=== PATIENT | male | born 1980 | race Caucasian/White ===

== ENCOUNTER → 2020-02-23 16:36 | Outpatient (BNVA) | payer OTHER, SELFPAY | PROVIDERS: Family Provider Nurse Practitioner; PCP Nurse Practitioner; Visit Provider Nurse Practitioner | DX: E78.2 Mixed hyperlipidemia (principal); E66.9 Obesity, unspecified; H10.10 Acute atopic conjunctivitis, unspecified eye | CPT/HCPCS: 80053; 80061 ==

== ENCOUNTER → 2020-06-11 16:29 | Outpatient (BNVA) | payer OTHER, SELFPAY | PROVIDERS: Family Provider Nurse Practitioner; PCP Nurse Practitioner; Visit Provider Nurse Practitioner | DX: E78.2 Mixed hyperlipidemia (principal) | CPT/HCPCS: 80053; 80061 ==

== ENCOUNTER → 2020-08-13 16:00 | Outpatient (BNVA) | payer OTHER, SELFPAY | PROVIDERS: Family Provider Nurse Practitioner; PCP Nurse Practitioner; Visit Provider Family Medicine | DX: N52.9 Male erectile dysfunction, unspecified (principal) | CPT/HCPCS: 84153; 84403 ==

== ENCOUNTER → 2020-12-11 16:27 | Outpatient (BNVA) | payer OTHER, SELFPAY | PROVIDERS: Family Provider Nurse Practitioner; PCP Nurse Practitioner; Visit Provider Family Medicine | DX: E29.1 Testicular hypofunction (principal) | CPT/HCPCS: 84403 ==

== ENCOUNTER → 2021-02-27 14:33 | Outpatient (BNVA) | payer OTHER, SELFPAY | PROVIDERS: Family Provider Nurse Practitioner; PCP Nurse Practitioner; Visit Provider Family Medicine | DX: E78.2 Mixed hyperlipidemia (principal); I10 Essential (primary) hypertension; N52.9 Male erectile dysfunction, unspecified | CPT/HCPCS: 80053; 80061; 84403; 84443; 85025 ==

== ENCOUNTER → 2021-12-06 09:41 | Outpatient (BNVA) | payer OTHER, SELFPAY | PROVIDERS: Family Provider Nurse Practitioner; PCP Nurse Practitioner; Visit Provider Nurse Practitioner | DX: I10 Essential (primary) hypertension (principal); R79.89 Other specified abnormal findings of blood chemistry | CPT/HCPCS: 80053; 80061; 81000; 84403; 85025 ==

== ENCOUNTER → 2021-12-12 14:25 | Outpatient (BNVA) | payer OTHER, SELFPAY | PROVIDERS: Family Provider Nurse Practitioner; PCP Nurse Practitioner; Visit Provider Nurse Practitioner | DX: M79.672 Pain in left foot (principal); M77.32 Calcaneal spur, left foot | CPT/HCPCS: 73630 ==

== ENCOUNTER → 2022-01-03 08:21 | Outpatient (BNVA) | payer OTHER, SELFPAY | PROVIDERS: Family Provider Nurse Practitioner; PCP Nurse Practitioner; Visit Provider Nurse Practitioner | DX: R79.89 Other specified abnormal findings of blood chemistry (principal) | CPT/HCPCS: 84403 ==

== ENCOUNTER → 2022-09-03 10:15 | Outpatient (BNVA) | payer OTHER, SELFPAY | PROVIDERS: Family Provider Nurse Practitioner; PCP Nurse Practitioner; Visit Provider Nurse Practitioner | DX: R79.89 Other specified abnormal findings of blood chemistry (principal); E78.2 Mixed hyperlipidemia | CPT/HCPCS: 80053; 80061; 84403; 85025 ==

== ENCOUNTER → 2022-12-25 16:08 | Outpatient (BNVA) | payer OTHER, SELFPAY | PROVIDERS: Family Provider Nurse Practitioner; PCP Nurse Practitioner; Visit Provider Nurse Practitioner | DX: R79.89 Other specified abnormal findings of blood chemistry (principal); E78.2 Mixed hyperlipidemia; I10 Essential (primary) hypertension | CPT/HCPCS: 80053; 80061; 84403; 85025 ==

== ENCOUNTER 2024-03-12 12:07 | Outpatient (CLI) | payer OTHER, SELFPAY ==
[2024-03-12 12:56] LABS: Basophils # 0.1 10^3/uL (0.0-0.1); Eosinophils # 0.4 10^3/uL (0.0-0.8); Eosinophils % 4.9 %; Hematocrit 51.5 % (37-53); Lymphocytes # 2.3 10^3/uL (0.8-4.8); Mean Corpuscular HGB Conc 33.8 g/dL (30-55); Mean Corpuscular Hemoglobin 31.4 pg (27-33); Mean Corpuscular Volume 92.8 fl (82-101); Monocytes # 0.7 10^3/uL (0.2-0.9); Neutrophils # 4.72 10^3/uL (1.8-7.7); Nucleated Red Blood Cells % 0 %; Platelet Count 211 10^3/cmm (157-399); Red Blood Count 5.55 10^6/uL (3.85-5.65); Red Cell Distribution Width 12.6 % (12.1-15.1); White Blood Count 8.14 10^3/uL (3.29-11.43)
[2024-03-12 13:12] LABS: Alanine Aminotransferase 34 U/L (0-41); Albumin Level 4.1 g/dL (3.5-5.2); Alkaline Phosphatase 75 U/L (40-130); Aspartate Amino Transferase 18 U/L (0-40); Blood Urea Nitrogen 11 mg/dL (6-20); Calcium 9.4 mg/dL (8.5-10.5); Carbon Dioxide 23 mmol/L (22-29); Chloride 109 mmol/L (98-107); Chol HDL Ratio 4.85 mg/dL (1.0-5.00); Cholesterol 194 mg/dL (0-200); Globulin 2.8 g/dL (1.3-4.6); Glomerular Filtration Rate 91.7 mL/min (90-130); Glucose 95 mg/dL (65-115); HDL Cholesterol 40 mg/dL (60-100); LDL Cholesterol Calculated 98 mg/dL (50-129); Osmolality Calculated 299 mOsm/kg (285-295); Sodium 145 mmol/L (136-145); Total Bilirubin 0.3 mg/dL (0.15-1.2); Total Protein 6.9 g/dL (6.6-8.7); Triglycerides 279 mg/dL (0-150); VLDL Cholestrol Calculation 56 mg/dL (0-30)
[2024-03-12 13:16] LABS: Anion Gap 17.7 (5-19); Potassium 4.7 mmol/L (3.5-5.1)
[2024-03-12 13:18] LABS: Testosterone Total 244.2 ng/dL (249-836)
== END 2024-03-12 12:08 | disposition home or self-care (01) ==
LOC: LAB 12:10
PROVIDERS: Family Provider Nurse Practitioner; PCP Nurse Practitioner; Visit Provider Nurse Practitioner
DX: R79.89 Other specified abnormal findings of blood chemistry (principal); E78.2 Mixed hyperlipidemia
CPT/HCPCS: 36415; 80053; 80061; 84403; 85025

== ENCOUNTER → 2024-05-06 14:41 | Outpatient (BNVA) | payer OTHER, SELFPAY | PROVIDERS: Family Provider Nurse Practitioner; PCP Nurse Practitioner; Visit Provider Nurse Practitioner | DX: R39.9 Unspecified symptoms and signs involving the genitourinary system (principal) | CPT/HCPCS: 81000 ==

== ENCOUNTER → 2024-05-09 09:27 | Outpatient (BNVA) | payer OTHER, SELFPAY | PROVIDERS: Family Provider Nurse Practitioner; PCP Nurse Practitioner; Visit Provider Nurse Practitioner | DX: I10 Essential (primary) hypertension (principal); R79.89 Other specified abnormal findings of blood chemistry | CPT/HCPCS: 81003; 84403; 87086 ==

== ENCOUNTER → 2024-08-29 10:53 | Outpatient (BNVA) | payer OTHER, SELFPAY | PROVIDERS: Family Provider Nurse Practitioner; PCP Nurse Practitioner; Visit Provider Nurse Practitioner | DX: I10 Essential (primary) hypertension (principal); R10.9 Unspecified abdominal pain; N39.0 Urinary tract infection, site not specified; R79.89 Other specified abnormal findings of blood chemistry | CPT/HCPCS: 71046; 80053; 81000; 84403; 85025; 87086 ==

== ENCOUNTER → 2025-01-09 08:16 | Outpatient (BNVA) | payer SELFPAY | PROVIDERS: Family Provider Nurse Practitioner; PCP Nurse Practitioner; Visit Provider Nurse Practitioner | DX: I10 Essential (primary) hypertension (principal); R79.89 Other specified abnormal findings of blood chemistry | CPT/HCPCS: 80053; 80061; 84403; 84443 ==

== ENCOUNTER 2025-02-06 12:27 | Emergency (ER) | payer SELFPAY ==
[2025-02-06 12:38] VITALS: BP 158/92; PULSE 79; TEMP 36.4; O2SAT 98
[2025-02-06 13:31] LABS: Hematocrit 50.0 % (37-53); Hemoglobin 17.30 g/dL (11.27-16.99); Mean Corpuscular HGB Conc 34.6 g/dL (30-55); Mean Corpuscular Hemoglobin 31.4 pg (27-33); Mean Corpuscular Volume 90.7 fl (82-101); Nucleated Red Blood Cells % 0 %; Platelet Count 181 10^3/cmm (157-399); Red Blood Count 5.51 10^6/uL (3.85-5.65); White Blood Count 11.50 10^3/uL (3.29-11.43)
[2025-02-06 13:48] LABS: Alanine Aminotransferase 25 U/L (0-41); Albumin Level 4.1 g/dL (3.5-5.2); Alkaline Phosphatase 74 U/L (40-130); Anion Gap 14.5 (5-19); Aspartate Amino Transferase 17 U/L (0-40); Blood Urea Nitrogen 12 mg/dL (6-20); Calcium 9.0 mg/dL (8.5-10.5); Carbon Dioxide 24 mmol/L (22-29); Chloride 102 mmol/L (98-107); Creatinine Clr Calc Pharmacy 102.5933; Globulin 2.8 g/dL (1.3-4.6); Glucose 100 mg/dL (65-115); Osmolality Calculated 282 mOsm/kg (285-295); Potassium 4.5 mmol/L (3.5-5.1); Sodium 136 mmol/L (136-145); Total Protein 6.9 g/dL (6.6-8.7)
--- NOTE | 2025-02-06 16:08 | CTR_ITS ---
PROCEDURE INFORMATION: Exam: CT Abdomen And Pelvis Without Contrast Exam date and time: 02/06/2025 4:30 PM Age: 44 years old Clinical indication: Abdominal pain; Flank; Right; Additional info: Right flank pain TECHNIQUE: Imaging protocol: Computed tomography of the abdomen and pelvis without contrast. Radiation optimization: All CT scans at this facility use at least one of these dose optimization techniques: automated exposure control; mA and/or kV adjustment per patient size (includes targeted exams where dose is matched to clinical indication); or iterative reconstruction. COMPARISON: CR XR chest 2V* [id number] 08/29/2024 10:52 AM RADIATION DOSE METRICS: Total DLP (mGy-cm): 1070.83 FINDINGS: Lungs: Visualized lung bases appear clear without infiltrate or effusion. Diaphragm: Tiny hiatal hernia. Liver: Normal. No mass. Gallbladder and biliary ducts: Normal. No calcified stones. No ductal dilation. Pancreas: Normal. No ductal dilation. Spleen: Normal. No splenomegaly. Adrenal glands: Normal. No mass. Kidneys and ureters: A 5 mm mid right ureteral calculus is seen at the S1 level with secondary [id number] ureterectasis and moderate hydronephrosis of the right kidney indicating obstructive uropathy. Associated mild right perinephric and periureteral stranding is also seen. No perinephric fluid collection. Left kidney appears unremarkable. Stomach and bowel: No bowel obstruction. Incomplete colonic distension. Scattered colonic diverticulosis without diverticulitis. Appendix: The appendix is visualized. No evidence of appendicitis. Intraperitoneal space: No free fluid or ascites or fluid collection. No free air. Vasculature: Vascular structures appear unremarkable for noncontrast exam. No aneurysmal dilatation of the abdominal aorta. Lymph nodes: No significant lymph node enlargement to indicate lymphadenopathy. Urinary bladder: Suboptimal urinary bladder distension with generalized wall thickening. Reproductive: Several prostate calcification noted. Bones/joints: Bone windows show no acute osseous abnormality. Soft tissues: Unremarkable. CT/CT kidney stone [id number] IMPRESSION: 5 mm mid right ureteral calculus at the S1 level with secondary moderate obstructive uropathy on the right as noted above.
--- NOTE | 2025-02-06 16:09 | ED_ITS ---
HPI - Male Genitourinary 2 General: Chief complaint: Urogenital-Male Stated complaint: R side back and abd pain, trouble urinating, n/v Time Seen by Provider: 02/06/25 15:58 Source: patient Mode of arrival: ambulatory Limitations: no limitations History of Present Illness: 44-year-old male who states he had a his tory of kidney stone in the past states that today he started having right-sided flank pain that radiated to his groin it has been sharp and severe in nature rates pain a 7 send has had some nausea with it. He denies any fevers denies any dysuria denies any worse improved factors Associated symptoms: Reports nausea; Deny dysuria or vomiting Related Data Previous Rx's ?Medication ?Instructions ?Recorded syringe with needle 3 mL 22 gauge #2 ea 08/29/24 x 1 testosterone cypionate 200 mg/mL 200 mg IM .every 14 d ays #2 mL 01/09/25 intramuscular oil (Depo-Testosterone) valsartan 160 mg tablet (Diovan) 160 mg PO DAILY #90 t abs 01/09/25 hydrocodone 5 mg-acetaminophen 325 1 tab PO Q6H PRN pa in #14 tabs 02/06/25 mg tablet naproxen 500 mg tablet (Naprosyn) 500 mg PO BID PRN pa in #20 tabs 02/06/25 ondansetron 4 mg disintegrating 4 mg PO Q6H PRN nausea and 02/06/25 tablet vomiting #14 tabs Allergies Allergy/AdvReac Type Severity Reaction Status Date / Time No Known Allergies Allergy Verified 02/06/25 12:43 Review of Systems 2 Const: Denies: fever(s), chills, body aches or change in appetite ENMT: Denies: throat pain or dental pain Card: Denies: chest pain Resp: Denies: dyspnea GI: Reports: abdominal pain and nausea; Denies: vomiting or diarrhea : Reports: flank pain; Denies: dysuria Musc: Denies: neck pain or back pain Skin/Breast: Denies: rash Neuro: Denies: headache(s) PFSH ED 2 PFSH: Medical History Low testosterone in male Essential hypertension Mixed hyperlipidemia Obesity, Class II, BMI 35-39.9 Surgical History History of knee surgery right History of hand surgery left Family History Other Asthma Diabetes Social History Smoking and tobacco/nicotine status: former use of tobacco/nicotine Second hand smoke exposure: No Alcohol intake: never Substance/Drug Use: never Adopted: No Caregiver/support person: No Lives independently: Yes Household members: spouse Housing: House Marital status: service: No Current occupational status: employed Current occupation: [employer] Do you think of yourself as: Straight/Heterosexual Current gender identity: Male Physical Exam 2 Const: COMMON NORMALS: no acute distress, patient oriented x3 and healthy appearing HENMT: COMMON NORMALS: normocephalic and atraumatic HEAD & SCALP: n ormocephalic and atraumatic Eye: COMMON NORMALS: conjunctivae normal CONJUNCTIVA: Yes conjunctivae normal Neck/C-Spine: COMMON NORMALS: full ROM and supple Chest: COMMONS NORMALS: normal inspection of the chest Resp: COMMON NORMALS: normal respiratory effort, No retractions, No use of accessory muscles and clear to auscultation bilaterally AUSCULTATION: clear to auscultation bilaterally Cardio: COMMON NORMALS: regular rate, regular rhythm and No murmurs present (Cardio) RATE: regular rate RHYTHM: regular rhythm GI: COMMON NORMALS: Normal to inspection, nondistended, normoactive bowel sounds present, Soft to palpation, non-tender and no masses PALPATION: Yes Soft to palpation Extremity: COMMON NORMALS: normal to inspection and full ROM Neuro: COMMON NORMALS: patient oriented x3, moves all extremities and no focal motor deficits Psych: COMMON NORMALS: mental status grossly normal, Normal thought process present and cooperative THOUGHT PROCESS: Normal thought process present Skin: COMMON NORMALS: no rashes or lesions noted and no wounds GENERAL SKIN EXAM: no rashes or lesions noted Course 2 Vital Signs: Vital signs: Vital Signs Temperature 97.5 F L 02/06/25 12:38 Pulse Rate 79 02/06/25 12:38 Respiratory Rate 16 02/06/25 16:22 Blood Pressure 132/83 02/06/25 17:34 Pulse Oximetry 95 02/06/25 17:34 Oxygen Delivery Me thod Room Air 02/06/25 12:38 MDM - Male Medical Decision Making Patient presents here with flank pain CT does show a kidney stone he is well- appearing here pain is resolved no UTI he stable for discharge follow-up PCP return if worsening. Medical Records I reviewed the patient's medical records. Lab Data I reviewed the patient's lab results. 02/06/25 13:24 02/06/25 13:24 Radiology Impressions Abdomen/Pelvis CT 02/06/25 16:08 IMPRESSION: 5 mm mid right ureteral calculus at the S1 level with secondary moderate obstructive uropathy on the right as noted above. Laboratory Results WBC 11.50 10^3/uL (3.29-11.43) H 02/06/25 13:24 RBC 5.51 10^6/uL (3.85-5.65) 02/06/25 13:24 Hgb 17.30 g/dL (11.27-16.99) H 02/06/25 13:24 Hct 50.0 % (37-53) 02/06/25 13:24 MCV 90.7 fl (82-101) 02/06/25 13:24 MCH 31.4 pg (27-33) 02/06/25 13:24 MCHC 34.6 g/dL (30-55) 02/06/25 13:24 RDW 12.1 % (12.1-15.1) 02/06/25 13:24 Plt Count 181 10^3/cmm (157-399) 02/06/25 13:24 MPV 10.0 fL (7.4-10.4) 02/06/25 13:24 Neut % (Auto) 82.2 % 02/06/25 13:24 Lymph % (Auto) 10.2 % 02/06/25 13:24 [place] % (Auto) 5.6 % 02/06/25 13:24 Eos % (Auto) 1.4 % 02/06/25 13:24 Baso % (Auto) 0.3 % 02/06/25 13:24 Neut # (Auto) 9.47 10^3/uL (1.8-7.7) H 02/06/25 13:24 Lymph # (Auto) 1.2 10^3/uL (0.8-4.8) 02/06/25 13:24 [place] # (Auto) 0.6 10^3/uL (0.2-0.9) 02/06/25 13:24 Eos # (Auto) 0.2 10^3/uL (0.0-0.8) 02/06/25 13:24 Baso # (Auto) 0.0 10^3/uL (0.0-0.1) 02/06/25 13:24 Nucleated RBC % (auto) 0 % 02/06/25 13:24 Nucleated RBCs # 0.0 /100WBC 02/06/25 13:24 Sodium 136 mmol/L (136-145) 02/06/25 13:24 Potassium 4.5 mmol/L (3.5-5.1) 02/06/25 13:24 Chloride 102 mmol/L (98-107) 02/06/25 13:24 Carbon Dioxide 24 mmol/L (22-29) 02/06/25 13:24 Anion Gap 14.5 (5-19) 02/06/25 13:24 BUN 12 mg/dL (6-20) 02/06/25 13:24 Creatinine 1.1 mg/dL (0.7-1.2) 02/06/25 13:24 GFR Calculation 72.4 mL/min (90-130) L 02/06/25 13:24 Glucose 100 mg/dL (65-115) 02/06/25 13:24 Calculated Osmolality 282 mOsm/kg (285-295) L 02/06/25 13:24 Calcium 9.0 mg/dL (8.5-10.5) 02/06/25 13:24 Total Bilirubin 0.5 mg/dL (0.15-1.2) 02/06/25 13:24 AST 17 U/L (0-40) 02/06/25 13:24 ALT 25 U/L (0-41) 02/06/25 13:24 Alkaline Phosphatase 74 U/L (40-130) 02/06/25 13:24 Total Protein 6.9 g/dL (6.6-8.7) 02/06/25 13:24 Albumin 4.1 g/dL (3.5-5.2) 02/06/25 13:24 Globulin 2.8 g/dL (1.3-4.6) 02/06/25 13:24 Urine Color Dark yellow (Yellow) A 02/06/25 16:28 Urine Appearance Clear (CLEAR) 02/06/25 16:28 Urine pH 6.0 (5-7) 02/06/25 16:28 Ur Specific [place] 1.015 (1.005-1.030) 02/06/25 16:28 Urine Protein Trace (Negative) A 02/06/25 16:28 Urine Glucose (UA) Negative (Normal) 02/06/25 16:28 Urine Ketones 1+ (Negative) H 02/06/25 16:28 Urine Blood 3+ (Negative) A 02/06/25 16:28 Urine Nitrate Negative (Negative) 02/06/25 16:28 Urine Bilirubin Negative (Negative) 02/06/25 16:28 Urine Urobilinogen 0.2 mg/dL (Negative) 02/06/25 16:28 Ur Leukocyte Esterase 1+ (Negative) A 02/06/25 16:28 Urine RBC >100 /hpf (0-2) H 02/06/25 16:28 Urine WBC 6-10 /hpf (0-5) 02/06/25 16:28 Ur Squamous Epith Cells 0-5 /hpf (0-5) 02/06/25 16:28 Amorphous Sediment Not Reportable 02/06/25 16:28 Urine Bacteria None seen /hpf (NONE) 02/06/25 16:28 Hyaline Casts 1.21 /lpf 02/06/25 16:28 All radiology interpretation(s) finalized by discharge Discharge Plan Discharge Patient Disposition: Home Clinical Impression: Kidney stone Condition: Stable Prescriptions: New hydrocodone-acetaminophen 5-325 mg tablet 1 tab PO Q6H PRN (Reason: pain) Qty: 14 0RF ondansetron 4 mg tablet,disintegrating 4 mg PO Q6H PRN (Reason: nausea and vomiting) Qty: 14 0RF naproxen [Naprosyn] 500 mg tablet 500 mg PO BID PRN (Reason: pain) Qty: 20 0RF No Action (DME) syringe with needle 3 mL 22 gauge x 1 syringe See Rx Instructions .ROUTE .MEDSUPPLY Qty: 2 5RF Rx Instructions: use 1 every 14 days valsartan [Diovan] 160 mg tablet 160 mg PO DAILY Qty: 90 1RF testosterone cypionate [Depo-Testosterone] 200 mg/mL oil 200 mg IM .every 14 days Qty: 2 5RF Discharge Orders: Discharge ED (Routine); Ordered 02/06/25 Ordered By: Maite Salazar Referrals: Lolis Bishop, [facility] [Primary Care Provider, [facility]] Discharge Diet: Advance as tolerated Discharge Activity: Resume usual activity Patient Instructions: Kidney Stones (ED), Opioid Safety Print Language: Telugu Coding Level of Care Code ED [employer] [employer] Operator for Dandre Hughes
[2025-02-06 16:22] VITALS: RESP 16
[2025-02-06] MEDS: ondansetron 2 mg/ML SDV 2 mL 4 MG IVP (16:22)
[2025-02-06] MEDS: morphine 4 mg/mL SDV 1 mL IVP (16:22)
[2025-02-06 16:38] LABS: Glucose Urine UA Negative (Normal); Nitrate Urine Negative (Negative); Specific Gravity, Urine 1.015 (1.005-1.030)
[2025-02-06 16:41] LABS: Add Urine Microscopic? YES
[2025-02-06 17:34] VITALS: BP 132/83; O2SAT 95
[2025-02-06 19:05] VITALS: BP 139/98; PULSE 55; RESP 16; O2SAT 96
--- NOTE | 2025-02-08 10:24 | DCPLANNER ---
Referral sent to [facility]
== END 2025-02-06 19:06 | disposition home or self-care (01) ==
PROVIDERS: Family Medicine; Emergency Provider Emergency Medicine; PCP Nurse Practitioner
DX: N20.0 Calculus of kidney (principal); Z87.442 Personal history of urinary calculi; Z87.891 Personal history of nicotine dependence; I10 Essential (primary) hypertension; E78.2 Mixed hyperlipidemia
CPT/HCPCS: 36415; 74176; 80053; 81001; 85025; 87086; 96374; 96375; 99285; J1885; J2270; J2405

== ENCOUNTER 2025-06-20 22:50 | Emergency (ER) | payer SELFPAY ==
[2025-06-20 22:53] VITALS: BP 100/72; PULSE 80; RESP 20; TEMP 36.4; O2SAT 96; BMI 35.4
[2025-06-20 23:17] LABS: Hematocrit 50.4 % (37-53); Hemoglobin 17.90 g/dL (11.27-16.99); Mean Corpuscular HGB Conc 35.5 g/dL (30-55); Mean Corpuscular Hemoglobin 30.8 pg (27-33); Mean Corpuscular Volume 86.7 fl (82-101); Nucleated Red Blood Cells % 0 %; Platelet Count 209 10^3/cmm (157-399); Red Blood Count 5.81 10^6/uL (3.85-5.65); White Blood Count 11.98 10^3/uL (3.29-11.43)
[2025-06-20 23:39] LABS: Alanine Aminotransferase 39 U/L (0-41); Albumin Level 4.5 g/dL (3.5-5.2); Alkaline Phosphatase 60 U/L (40-130); Anion Gap 17.1 (5-19); Aspartate Amino Transferase 21 U/L (0-40); Blood Urea Nitrogen 15 mg/dL (6-20); Calcium 8.9 mg/dL (8.5-10.5); Chloride 104 mmol/L (98-107); Globulin 2.4 g/dL (1.3-4.6); Glucose 138 mg/dL (65-115); Osmolality Calculated 295 mOsm/kg (285-295); Potassium 4.1 mmol/L (3.5-5.1); Sodium 141 mmol/L (136-145); Total Protein 6.9 g/dL (6.6-8.7)
[2025-06-20 23:41] LABS: Glucose Urine UA Negative (Normal); Nitrate Urine Positive (Negative)
[2025-06-20 23:46] LABS: Add Urine Microscopic? YES
[2025-06-20 23:53] LABS: Carbon Dioxide 23 mmol/L (22-29)
[2025-06-20 23:58] LABS: Specific Gravity, Urine 1.038 (1.005-1.030); UA Slide Review UA Slide Review Perf
--- NOTE | 2025-06-21 00:03 | CTR_ITS ---
PROCEDURE INFORMATION: Exam: CT Abdomen And Pelvis Without Contrast Exam date and time: 06/21/2025 12:37 AM Age: 45 years old Clinical indication: Abdominal pain; Flank; Other: Bilat; Additional info: Flank pain, HX stones, hematuria TECHNIQUE: Imaging protocol: Computed tomography of the abdomen and pelvis without contrast. Radiation optimization: All CT scans at this facility use at least one of these dose optimization techniques: automated exposure control; mA and/or kV adjustment per patient size (includes targeted exams where dose is matched to clinical indication); or iterative reconstruction. COMPARISON: CT kidney stone [id number] 02/06/2025 4:30 PM RADIATION DOSE METRICS: Total DLP (mGy-cm): 1148.13 FINDINGS: Liver: Normal. No mass. Gallbladder and biliary ducts: Normal. No calcified stones. No ductal dilation. Pancreas: Normal. No ductal dilation. Spleen: Normal. No splenomegaly. Adrenal glands: Normal. No mass. Kidneys and ureters: Obstructing 7 mm right distal ureter stone. Mild hydronephrosis of the right kidney. No remaining renal stones. Stomach and bowel: Diverticulosis, without acute diverticulitis. No small bowel obstruction. No free air. Appendix: No evidence of appendicitis. Intraperitoneal space: See Stomach and bowel finding. Vasculature: Unremarkable. No abdominal aortic aneurysm. Lymph nodes: Unremarkable. No enlarged lymph nodes. Urinary bladder: Unremarkable as visualized. Reproductive: Unremarkable as visualized. Bones/joints: Unremarkable. No acute fracture. Soft tissues: Unremarkable. CT/CT kidney stone [id number] IMPRESSION: 1. Obstructing 7 mm right distal ureter stone. Mild hydronephrosis of the right kidney. 2. No remaining renal stones. 3. Diverticulosis, without acute diverticulitis. No small bowel obstruction. No free air.
[2025-06-21 00:24] VITALS: BP 161/102; PULSE 85; O2SAT 96
--- NOTE | 2025-06-21 00:32 | ED_ITS ---
HPI - Abdominal Pain 2 General: Chief Complaint: Abdominal Pain Stated Complaint: Back Pain\Possible Kidney Stones Time Seen by Provider: 06/21/25 00:23 Source: patient and family Mode of arrival: ambulatory Limitations: no limitations History of Present Illness: Patient is a 45-year-old male who presents to ED today with a complaint of right sided flank pain that wraps around into his abdomen. Patient states he was seen here back in January and diagnosed with a 5 mm distal ureter stone. He states he does not believe he was ever referred to urology. Patient states he has had intermittent discomfort since then but nothing like yesterday evening when pain became severe. Prior to January, he does state he has had previous stones. Patient has never seen a urologist or had any type of management performed for previous urolithiasis. He is complaining of difficulty with urination. He states urine has been orange in color secondary to Azo use. Patient states when the pain becomes severe, it often makes him nauseous and he has had episodes of vomiting. Reporting normal bowel movements. No fevers. MD elicited complaint: abdominal pain and flank pain Pertinent past history: kidney stones Onset (ago): day(s) (yesterday) Pain Consistency: constant Location: RLQ, R flank and Groin Severity: moderate Quality: sharp Radiation: none Migration to: no migration Exacerbating factors: nothing Relieving factors: nothing Associated Symptoms: Reports nausea and vomiting; Denies change in bowel habits, chills, dysuria, fever(s) and hematemesis Related Data Previous Rx's ?Medication ?Instructions ?Recorded testosterone cypionate 200 mg/mL 200 mg IM .every 14 d ays #2 mL 01/09/25 intramuscular oil (Depo-Testosterone) valsartan 160 mg tablet (Diovan) 160 mg PO DAILY #90 t abs 01/09/25 naproxen 500 mg tablet (Naprosyn) 500 mg PO BID PRN pa in #20 tabs 02/06/25 syringe with needle 3 mL 22 gauge #2 ea 05/04/25 x 1 hydrocodone 5 mg-acetaminophen 325 1 tab PO .q 4-6 PRN pain #15 tabs 06/21/25 mg tablet ondansetron 4 mg disintegrating 4 mg PO Q6H PRN nausea and 06/21/25 tablet vomiting #14 tabs tamsulosin 0.4 mg capsule (Flomax) 0.4 mg PO DAILY #10 caps 06/21/25 Allergies Allergy/AdvReac Type Severity Reaction Status Date / Time No Known Allergies Allergy Verified 06/20/25 23:01 Review of Systems 2 Const: Denies: fever(s), chills, body aches, fatigue or malaise Card: Denies: chest pain Resp: Denies: dyspnea GI: Reports: abdominal pain, nausea and vomiting; Denies: hematemesis or change in bowel habits : Reports: flank pain, difficulty urinating, urinary urgency, urinary hesitancy and other (color change in urine secondary to Azo use); Denies: dysuria Musc: Reports: back pain (R flank) Skin/Breast: Denies: rash Neuro: Denies: headache(s) or dizziness PFSH ED 2 PFSH: Medical History Low testosterone in male Essential hypertension Mixed hyperlipidemia Obesity, Class II, BMI 35-39.9 Surgical History History of knee surgery right History of hand surgery left Family History Other Asthma Diabetes Social History Smoking and tobacco/nicotine status: former use of tobacco/nicotine Second hand smoke exposure: No Alcohol intake: never Substance/Drug Use: never Adopted: No Caregiver/support person: No Lives independently: Yes Household members: spouse Housing: House Marital status: service: No Current occupational status: employed Current occupation: [employer] Do you think of yourself as: Straight/Heterosexual Current gender identity: Male Physical Exam 2 Const: COMMON NORMALS: no acute distress, average body habitus, patient oriented x3, no limitations, healthy appearing, alert and well nourished G ENERAL APPEARANCE: cooperative ORIENTATION/CONSCIOUSNESS: Yes awake, Yes oriented to person, Yes oriented to place and Yes oriented to time Eye: COMMON NORMALS: no scleral icterus Chest: COMMONS NORMALS: normal inspection of the chest and normal palpation of entire chest wall Resp: COMMON NORMALS: normal respiratory effort and clear to auscultation bilaterally AUSCULTATION: clear to auscultation bilaterally Cardio: COMMON NORMALS: regular rate and regular rhythm RATE: regular rate RHYTHM: regular rhythm GI: COMMON NORMALS: Normal to inspection, nondistended, normoactive bowel sounds present, Soft to palpation, No hepatosplenomegaly present and no masses INSPECTION: Yes normal to inspection AUSCULTATION: Yes normoactive bowel sounds PALPATION: Yes Soft to palpation, Yes Tenderness to palpation present (GI) (RLQ/R pelvis), No Guarding due to palpation present (GI), No Rigid due to palpation and Yes No hepatosplenomegaly present : BLADDER/KIDNEY EXAM: Yes CVA tenderness on the right Back/Pelvis: COMMON NORMALS: thoracic and lumbar spine normal to inspection, no thoracic nor lumbar tenderness, thoraco-lumbar ROM normal and straight leg raise negative bilaterally GENERAL BACK: Yes CVA tenderness Extremity: COMMON NORMALS: normal to inspection GENERAL: Yes normal exam except as noted Neuro: COMMON NORMALS: patient oriented x3, moves all extremities, no focal motor deficits, no sensory deficits noted and gait normal S ENSORIUM/ORIENTATION: Yes alert, Yes oriented to person, Yes oriented to place and Yes oriented to time Skin: COMMON NORMALS: no rashes or lesions noted GENERAL SKIN EXAM: no rashes or lesions noted Course 2 Vital Signs: Vital signs: Vital Signs Temperature 97.5 F L 06/20/25 22:53 Pulse Rate 85 06/21/25 00:24 Respiratory Rate 20 H 06/20/25 22:53 Blood Pressure 161/102 06/21/25 00:24 Pulse Oximetry 96 06/21/25 00:24 Oxygen Delivery Me thod Room Air 06/21/25 00:24 MDM - Abdominal Pain Medical Decision Making Patient here for right flank pain wrapping around to his right lower abdomen/pelvis. He states that pain is similar to back in January when he was diagnosed with a 5 mm ureter stone. Patient feels like he never passed the stone as, for the past few months, he has had identical colicky like pain. He was never referred to urology. He is not complaining of fevers. He has had nausea and vomiting when pain would become severe. Clinically patient appears well. His vital signs are stable. Blood work overall is nonactionable. His UA with color interference due to Azo use. He did have hematuria. Personal interpretation of patient's CT scan showing probable same ureteral calculi from January-this has moved distally and is now sitting at the UVJ. Official radiology read is measuring this at 7mm. Still causing moderate obstructive uropathy. Will discharge patient home with a urinary strainer. Will have him follow-up with urology. Will place him on Flomax as well as pain/nausea meds. Return to ED precautions discussed. Differential Diagnosis Likely abdominal pain and calculus of kidney Medical Records I reviewed the patient's medical records. Lab Data I reviewed the patient's lab results. 06/20/25 23:11 06/20/25 23:11 Labs/Radiology: Radiology Impressions Abdomen/Pelvis CT 06/21/25 00:03 IMPRESSION: 1. Obstructing 7 mm right distal ureter stone. Mild hydronephrosis of the right kidney. 2. No remaining renal stones. 3. Diverticulosis, without acute diverticulitis. No small bowel obstruction. No free air. Laboratory Results WBC 11.98 10^3/uL (3.29-11.43) H 06/20/25 23:11 RBC 5.81 10^6/uL (3.85-5.65) H 06/20/25 23:11 Hgb 17.90 g/dL (11.27-16.99) H 06/20/25 23:11 Hct 50.4 % (37-53) 06/20/25 23:11 MCV 86.7 fl (82-101) 06/20/25 23:11 MCH 30.8 pg (27-33) 06/20/25 23:11 MCHC 35.5 g/dL (30-55) 06/20/25 23:11 RDW 11.6 % (12.1-15.1) L 06/20/25 23:11 Plt Count 209 10^3/cmm (157-399) 06/20/25 23:11 MPV 10.0 fL (7.4-10.4) 06/20/25 23:11 Neut % (Auto) 83.1 % 06/20/25 23:11 Lymph % (Auto) 12.0 % 06/20/25 23:11 [place] % (Auto) 3.9 % 06/20/25 23:11 Eos % (Auto) 0.3 % 06/20/25 23:11 Baso % (Auto) 0.4 % 06/20/25 23:11 Neut # (Auto) 9.95 10^3/uL (1.8-7.7) H 06/20/25 23:11 Lymph # (Auto) 1.4 10^3/uL (0.8-4.8) 06/20/25 23:11 [place] # (Auto) 0.5 10^3/uL (0.2-0.9) 06/20/25 23:11 Eos # (Auto) 0.0 10^3/uL (0.0-0.8) 06/20/25 23:11 Baso # (Auto) 0.1 10^3/uL (0.0-0.1) 06/20/25 23:11 Nucleated RBC % (auto) 0 % 06/20/25 23:11 Nucleated RBCs # 0.0 /100WBC 06/20/25 23:11 Sodium 141 mmol/L (136-145) 06/20/25 23:11 Potassium 4.1 mmol/L (3.5-5.1) 06/20/25 23:11 Chloride 104 mmol/L (98-107) 06/20/25 23:11 Carbon Dioxide 23 mmol/L (22-29) 06/20/25 23:11 Anion Gap 17.1 (5-19) 06/20/25 23:11 BUN 15 mg/dL (6-20) 06/20/25 23:11 Creatinine 1.2 mg/dL (0.7-1.2) 06/20/25 23:11 GFR Calculation 65.2 mL/min (90-130) L 06/20/25 23:11 Glucose 138 mg/dL (65-115) H 06/20/25 23:11 Calculated Osmolality 295 mOsm/kg (285-295) 06/20/25 23:11 Calcium 8.9 mg/dL (8.5-10.5) 06/20/25 23:11 Total Bilirubin 0.5 mg/dL (0.15-1.2) 06/20/25 23:11 AST 21 U/L (0-40) 06/20/25 23:11 ALT 39 U/L (0-41) 06/20/25 23:11 Alkaline Phosphatase 60 U/L (40-130) 06/20/25 23:11 Total Protein 6.9 g/dL (6.6-8.7) 06/20/25 23:11 Albumin 4.5 g/dL (3.5-5.2) 06/20/25 23:11 Globulin 2.4 g/dL (1.3-4.6) 06/20/25 23:11 Urine Color [place] (Yellow) A 06/20/25 23:22 Urine Appearance Cloudy (CLEAR) A 06/20/25 23:22 Urine pH 5.0 (5-7) 06/20/25 23:22 Ur Specific [place] 1.038 (1.005-1.030) H 06/20/25 23:22 Urine Protein 1+ (Negative) A 06/20/25 23:22 Urine Glucose (UA) Negative (Normal) 06/20/25 23: Urine Ketones Negative (Negative) 06/20/25 23: Urine Blood 2+ (Negative) A 06/20/25 23:22 Urine Nitrate Positive (Negative) A 06/20/25 23:22 Urine Bilirubin 1+ (Negative) H 06/20/25 23:22 Urine Urobilinogen 1.0 mg/dL (Negative) 06/20/25 23:22 Ur Leukocyte Esterase Negative (Negative) 06/20/25 23:22 Urine RBC 6-10 /hpf (0-2) 06/20/25 23:22 Urine WBC 0-5 /hpf (0-5) 06/20/25 23:22 Ur Squamous Epith Cells 0-5 /hpf (0-5) 06/20/25 23:22 Amorphous Sediment Not Reportable 06/20/25 23:22 Urine Bacteria None seen /hpf (NONE) 06/20/25 23:22 Hyaline Casts 7.01 /lpf 06/20/25 23:22 Urine Mucus 2+ /hpf 06/20/25 23:22 All radiology interpretation(s) finalized by discharge Discharge Plan Discharge Patient Disposition: Home Clinical Impression: Right distal ureteral calculus Condition: Stable Prescriptions: New tamsulosin [Flomax] 0.4 mg capsule 0.4 mg PO DAILY Qty: 10 0RF Continued ondansetron 4 mg tablet,disintegrating 4 mg PO Q6H PRN (Reason: nausea and vomiting) Qty: 14 0RF Changed hydrocodone-acetaminophen 5-325 mg tablet 1 tab PO .q 4-6 PRN (Reason: pain) Qty: 15 0RF No Action valsartan [Diovan] 160 mg tablet 160 mg PO DAILY Qty: 90 1RF testosterone cypionate [Depo-Testosterone] 200 mg/mL oil 200 mg IM .every 14 days Qty: 2 5RF (DME) syringe with needle 3 mL 22 gauge x 1 syringe See Rx Instructions .ROUTE .MEDSUPPLY Qty: 2 5RF Rx Instructions: use 1 every 14 days naproxen [Naprosyn] 500 mg tablet 500 mg PO BID PRN (Reason: pain) Qty: 20 0RF Discharge Orders: Discharge ED (Routine); Ordered 06/21/25 Ordered By: Kalpana Rodrigues Referrals: Lolis Bishop FNP-C [Primary Care Provider, Family Practice] Patient Instructions: Ureteral Stones (ED), Opioid Safety, Pain Management, Patient Portal & Mary Instructions Activity Restrictions/Additional Instructions: As we discussed, I have placed a case management referral to get you set up with a urologist for further evaluation of the stone located to your right distal ureter. We will discharge you home with a urine strainer so you may begin straining your urine. Please bring any past stones with you to your urology appointment. You need to drink plenty of fluids throughout the day aiming for large forceful voids to help move the stone into your bladder. You may return to the emergency department for onset of worsening or uncontrollable pain, repetitive episodes of vomiting, fevers, generally feeling worse or unwell, or any other concerns you may have. Print Language: Mauritian Coding Level of Care Code ED [employer] Machine Operator for Dandre Hughes
[2025-06-21] MEDS: ondansetron 2 mg/ML SDV 2 mL 4 MG IVP (01:08)
[2025-06-21 01:30] VITALS: BP 147/91; PULSE 74; O2SAT 95
--- NOTE | 2025-06-26 09:46 | DCPLANNER ---
faxed outpatient referral to [facility] - maxi pushed
== END 2025-06-21 01:39 | disposition home or self-care (01) ==
PROVIDERS: Emergency Provider Physician Assistant; PCP Nurse Practitioner
DX: N20.1 Calculus of ureter (principal); I10 Essential (primary) hypertension; E78.2 Mixed hyperlipidemia; Z87.891 Personal history of nicotine dependence
CPT/HCPCS: 36415; 74176; 80053; 81001; 85025; 96374; 96375; 99285; J1885; J2405; J7030